=== PATIENT | male | born 1995 | race Caucasian/White ===

== ENCOUNTER 2021-05-03 07:21 | Emergency (ER) | payer OTHER ==
[2021-05-03] MEDS ORDERED: Proparacaine 0.5% Ophth Soln 15 ML Bottle EYELF ONE (07:43)
--- NOTE | 2021-05-03 08:10 | EDM.PDOC ---
ED HPI GENERAL MEDICAL PROBLEM - General Chief Complaint: Eye Problems Stated Complaint: POSSIBLE SCRATH IN L EYE Time Seen by Provider: 05/03/21 08:08 Source of Information: Reports: Patient History Limitations: Reports: No Limitations - History of Present Illness INITIAL COMMENTS - FREE TEXT/NARRATIVE: pt wears contacts and yesterday he started feeling pain under the contact. Last niote he took the contact out and it continued to pain. He can not think of a incident where he got something in the eye. Onset: Other ( started yesterday) Duration: Hour(s): Location: Reports: Face Associated Symptoms: Reports: No Other Symptoms - Related Data Allergies Allergy/AdvReac Type Severity Reaction Status Date / Time No Known Allergies Allergy Verified 05/03/21 07:50 Home Meds: Home Meds NK [No Known Home Meds] 05/03/21 [History] Past Medical History - Past Health History Medical/Surgical History: Denies Medical/Surgical History Social & Family History - Tobacco Use Tobacco Use Status *Q: Never Tobacco User ED ROS GENERAL - Review of Systems Review Of Systems: See Below Constitutional: Reports: No Symptoms HEENT: Reports: Eye Pain, Other (pt wears contacts and is now having pain in left eye. ) Respiratory: Reports: No Symptoms Cardiovascular: Reports: No Symptoms Endocrine: Reports: No Symptoms GI/Abdominal: Reports: No Symptoms : Reports: No Symptoms Musculoskeletal: Reports: No Symptoms Skin: Reports: No Symptoms Neurological: Reports: No Symptoms Psychiatric: Reports: No Symptoms ED EXAM GENERAL W FULL EYE - Physical Exam Exam: See Below Text/Narrative:: pt is having pain in the the left eye starting last nite. Exam Limited By: No Limitations General Appearance: Alert, Mild Distress, Other (pt has a red eye with perpheral injection. No foreign body can be seen popercaine was inserted and he was much more comfortable. The eye was stained and there is a pinepoint abrasion in the center of the cornea. I can not see anything to remove. The dye does pool in the site. ) Ears: Normal External Exam Nose: Normal Inspection Throat/Mouth: Normal Inspection Course - Vital Signs Last Recorded V/S: Last Vital Signs Temp 36.4 C 05/03/21 07:53 Pulse 74 05/03/21 07:53 Resp 16 05/03/21 07:53 BP 114/63 05/03/21 07:53 Pulse Ox 100 05/03/21 07:53 - Orders/Labs/Meds Meds: Medications Discontinued Medications Generic Name Dose Route Start Last Admin Trade Name Dominic PRAurelia Reason Stop Dose Admin Proparacaine HCl 0.1 ml 05/03/21 07:43 05/03/21 07:53 Proparacaine 0.5% Ophth Soln 15 Ml Bottle EYELF 05/03/21 07:44 3 drop ONETIME ONE Administration - Re-Assessments/Exams Free Text/Narrative Re-Assessment/Exam: 05/03/21 08:18 pt got good relief with the drops. Departure - Departure Time of Disposition: 08:08 Disposition: Home, Self-Care 01 Condition: Fair Clinical Impression: Corneal abrasion - Discharge Information Referrals: PCP,None [Primary Care Provider] - Forms: ED Department Discharge Care Plan Goals: avoid rubbing the eye, dark glasses to avoid irritation from bright lite, gentamycin eye drops qid for the next 4-5 days, do not wear contacts for te next 4-5 days. rtc if not improving. Sepsis Event Note (ED) - Evaluation Sepsis Screening Result: No Definite Risk - Focused Exam Vital Signs: Vital Signs Temp Pulse Resp BP Pulse Ox 05/03/21 07:53 36.4 C 74 16 114/63 100 05/03/21 07:46 36.4 C 74 16 114/63 100
== END 2021-05-03 08:33 | disposition home or self-care (01) ==
LOC: JP.ED 07:21
DX: S05.02XA Injury of conjunctiva and corneal abrasion without foreign body, left eye, initial encounter (principal); X58.XXXA Exposure to other specified factors, initial encounter
CPT/HCPCS: 99283; A9270